=== PATIENT | female | born 1965 | race Caucasian/White ===

== ENCOUNTER 2019-02-04 18:20 | Emergency (ER) | payer OTHER ==
[2019-02-04 18:28] VITALS: BP 151/78; PULSE 107; TEMP 98.4; BMI 26.6
--- NOTE | 2019-02-04 18:32 | PDOC ---
History of Present Illness - General Chief Complaint: Cold Symptoms Stated Complaint: COLD SYMPTOMS Time Seen by Provider: 02/04/19 18:29 History Source: Patient - History of Present Illness Initial Comments: 02/04/19 19:04 Chief complaint: Cough and fever Patient is a 53-year-old female, nonsmoker with history of hypertension with 4- 5 days of cough, now states in the last 2 days cough is getting worse, and she feels feverish although she has not taken her temperature. He shouldn't is able to speak clearly. Nonproductive cough. Patient is able to eat and drink. GENERAL/CONSTITUTIONAL: No fever, weakness. dizziness HEAD, EYES, EARS, NOSE AND THROAT: No change in vision. No ear pain or discharge. No sore throat. CARDIOVASCULAR: No chest pain RESPIRATORY: No shortness of breath +cough GASTROINTESTINAL: No pain, nausea, vomiting, diarrhea or constipation GENITOURINARY: No dysuria MUSCULOSKELETAL: No neck or back pain SKIN: No rash NEUROLOGIC: No headache, vertigo, loss of consciousness, or loss of sensation. GENERAL: The patient is awake, alert, and fully oriented, in no acute distress. HEAD: Normal with no signs of trauma. EYES: Pupils equal, round and reactive to light, sclera anicteric, conjunctiva clear. ENT: pharynx: no erythema, no exudate, uvula midline NECK: supple CHEST: clear, frequent coughing, nontender, rr ABD: soft, nontender EXTREMITIES: Normal range of motion, no edema. NEUROLOGICAL: Normal speech, normal gait. SKIN: Warm, Dry Past History - Past Medical History Allergies/Adverse Reactions: Allergies Allergy/AdvReac Type Severity Reaction Status Date / Time No Known Allergies Allergy Verified 02/04/19 18:28 Home Medications: Ambulatory Orders Metoprolol Succinate [Toprol XL -] 50 mg PO DAILY 04/24/15 Ibuprofen [Motrin -] 600 mg PO TID PRN #21 tablet 10/13/15 Albuterol Sulfate Inhaler - [Ventolin HFA Inhaler -] 2 inh PO Q4H PRN #1 inh 09/24 Azithromycin [Zithromax 250mg Tablets -] 250 mg PO UTDICT #6 tab 02/04/19 Valsartan [Diovan] mg PO DAILY 02/04/19 HTN: Yes - Suicide/Smoking/Psychosocial Hx Smoking History: Never smoked Have you smoked in the past 12 months: No Hx Alcohol Use: No Drug/Substance Use Hx: No Substance Use Type: None *Physical Exam - Vital Signs Last Vital Signs Temp Pulse Resp BP Pulse Ox 98.4 F 107 H 18 151/78 98 02/04/19 18:27 02/04/19 18:27 02/04/19 18:27 02/04/19 18:27 02/04/19 18:27 Medical Decision Making - Medical Decision Making 53-year-old with history of hypertension, with 4-5 day history of cough, now with 2 days of subjective fevers, worsening cough. Patient will get chest x-ray , the reassess, is not hypoxic, no signs of respiratory distress.. Patient works in a school. Chest x-ray shows no infiltrate, discussed with patient. She states this is similar to times before and it gets worse until she has to take antibiotics, will also give albuterol inhaler. Patient will follow-up with her doctor Discussed issues, findings, results, applicable medications and treatments and follow-up. All these were understood and all questions were answered *DC/Admit/Observation/Transfer Diagnosis at time of Disposition: Upper respiratory infection Qualifiers: URI type: unspecified URI Qualified Code(s): J06.9 - Acute upper respiratory infection, unspecified - Discharge Dispostion Disposition: HOME Condition at time of disposition: Stable - Prescriptions Prescriptions: Albuterol Sulfate Inhaler - [Ventolin HFA Inhaler -] 2 inh PO Q4H PRN #1 inh PRN Reason: Cough Azithromycin [Zithromax 250mg Tablets -] 250 mg PO UTDICT #6 tab - Referrals - Patient Instructions Additional Instructions: Drink 2-3 L of water daily Take Tylenol 650 mg every 4 hours or Motrin 600 mg every 6 hours for fever and pain Take Zithromax as instructed until finished and use albuterol inhaler 2 puffs every 4-6 hours as needed for coughing Return to the nearest ER if short of breath, unable to swallow or feeling sicker Followup with your doctor in one to 2 days - Post Discharge Activity
== END 2019-02-04 19:21 | disposition home or self-care (01) ==
LOC: JERFT 18:20
DX: J06.9 Acute upper respiratory infection, unspecified (principal); I10 Essential (primary) hypertension
CPT/HCPCS: 71046-TC-FY; 99281-25

== ENCOUNTER 2019-06-10 16:33 | Emergency (ER) | payer OTHER ==
[2019-06-10 16:51] VITALS: BP 134/65; PULSE 104; TEMP 99.2; BMI 25.6
[2019-06-10] MEDS ORDERED: DEXAMETHASONE SOD PHOSPHATE 10 MG/1 ML VIAL IM ONE (16:53)
[2019-06-10] MEDS ORDERED: ACETAMINOPHEN 325 MG TABLET (FP) PO ONE (16:53)
--- NOTE | 2019-06-10 16:57 | PDOC ---
History of Present Illness - General Chief Complaint: Sore Throat Stated Complaint: THROAT INFECTION Time Seen by Provider: 06/10/19 16:41 History Source: Patient (sorethroat and R ear pain X 1 day) Exam Limitations: No Limitations (sorethroat X 1 day) - History of Present Illness Associated Symptoms: denies: cough, fever/chills, rash Past History - Travel Traveled outside of the country in the last 30 days: No Close contact w/someone who was outside of country & ill: No - Past Medical History Allergies/Adverse Reactions: Allergies Allergy/AdvReac Type Severity Reaction Status Date / Time No Known Allergies Allergy Verified 06/10/19 16:39 Home Medications: Ambulatory Orders Metoprolol Succinate [Toprol XL -] 50 mg PO DAILY 04/24/15 Ibuprofen [Motrin -] 600 mg PO TID PRN #21 tablet 10/13/15 Albuterol Sulfate Inhaler - [Ventolin HFA Inhaler -] 2 inh PO Q4H PRN #1 inh 09/24 Azithromycin [Zithromax 250mg Tablets -] 250 mg PO UTDICT #6 tab 02/04/19 Valsartan [Diovan] mg PO DAILY 02/04/19 Ibuprofen 800 mg PO ACDIN 7 Days #21 tablet 06/10/19 HTN: Yes - Psycho Social/Smoking Cessation Hx Smoking History: Never smoked Have you smoked in the past 12 months: No Hx Alcohol Use: No Drug/Substance Use Hx: No Substance Use Type: None Review of Systems - Review of Systems Constitutional: Yes: Fever. No: Chills HEENTM: Yes: Ear Pain, Throat Pain, Throat Swelling. No: Ear Discharge Respiratory: No: Cough, Shortness of Breath, Productive cough Cardiac (ROS): No: Chest Pain Neurological: No: Headache, Tingling *Physical Exam - Vital Signs Last Vital Signs Temp Pulse Resp BP Pulse Ox 99.2 F 104 H 20 134/65 99 06/10/19 16:35 06/10/19 16:35 06/10/19 16:35 06/10/19 16:35 06/10/19 16:35 - Physical Exam General Appearance: Yes: Nourished HEENT: positive: EOMI, ELLEN, TMs Normal, Tonsillar Exudate, Tonsillar Erythema. negative: Excessive drooling Respiratory/Chest: positive: Lungs Clear, Normal Breath Sounds Cardiovascular: positive: Regular Rhythm, Regular Rate, S1, S2 Integumentary: positive: Normal Color Neurologic: positive: information engineer II-XII NML intact, Fully Oriented, Alert, Normal Mood/ Affect, Normal Response, Motor Strength 5/5 Medical Decision Making - Medical Decision Making 06/10/19 17:16 Patient is a 53 years old female with sore throat and right ear pain x1 day. Patient denies any cough drooling sick contacts shortness of breath or hoarseness of voice. Examination consists of erythematous oropharynx with swelling there is no evidence of GEOSPATIAL ANALYST her uvula is midline. Rapid strep today is negative Discharge - Discharge Information Problems reviewed: Yes Clinical Impression/Diagnosis: Sorethroat Condition: Stable Disposition: HOME - Admission No - Additional Discharge Information Prescriptions: Ibuprofen 800 mg PO ACDIN 7 Days #21 tablet Prescription Drug Monitoring Program (I-STOP) results: I-STOP not reviewed - Follow up/Referral Referrals: Gayathri Finney MD [Primary Care Provider] - - Patient Discharge Instructions Patient Printed Discharge Instructions: Sore Throat Additional Instructions: Your rapid strep was negative today, a culture will be sent out. If positive in a few days you will be contacted for antibiotics take motrin for pain gargle with salt warm water Return to the ER If worsening symptoms occurs - Post Discharge Activity Work/Back to School Note: Back to Work
[2019-06-10] MEDS ORDERED: ACETAMINOPHEN 325 MG TABLET (FP) ONE (16:59)
[2019-06-10] MEDS ORDERED: DEXAMETHASONE SOD PHOSPHATE 10 MG/1 ML VIAL ONE (16:59)
[2019-06-10] MEDS ORDERED: DEXAMETHASONE 4 MG TABLET (FP) PO STA (17:06)
[2019-06-10] MEDS ORDERED: KETOROLAC TROMETHAMINE 30 MG/1 ML VIAL IM ONE (17:42)
[2019-06-10] MEDS ORDERED: KETOROLAC TROMETHAMINE 30 MG/1 ML VIAL ONE (17:45)
== END 2019-06-10 17:50 | disposition home or self-care (01) ==
LOC: JERFT 16:33
PROC: 3E0233Z Introduction of Anti-inflammatory into Muscle, Percutaneous Approach (ICD-10-PCS; principal; 2019-06-10)
DX: J02.9 Acute pharyngitis, unspecified (principal); I10 Essential (primary) hypertension
CPT/HCPCS: 87070; 87880; 99282-25